=== PATIENT | male | born 1935 | race Caucasian/White ===

== ENCOUNTER 2017-08-02 18:09 | Emergency (ER) | payer OTHER, BC ==
[2017-08-02 18:16] VITALS: BP 146/85; BMI 23.6
[2017-08-02] MEDS ORDERED: NEOSPORIN OINT ONE (18:32)
--- NOTE | 2017-08-02 18:41 | DR.GENAD ---
HPI - PCP Primary Care Physician: [email or web address] - HPI Comment HPI Comment: HISTORY BELOW. - Complaint/Symptoms Chief Complaint Doctors Comments: PATIENTS COLOSTOMY CAME LOOSE AND HEALING WOUND NEAR IT WAS CONTAMINATED BY STOOL. Chief Complaint:: pt just returned from [place] [facility] [place] and his colostomy cam loose and he had bowel on a open wound. 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 Past Surgical History: Yes Surgical History: Abdominal Surgery Past Surgical History Comment: has colostomy - Family History History of Family Medical Conditions: No - Social History Does patient currently use any type of tobacco product: No Have you used tobacco products in the last 12 months: No Type of Tobacco Use: None Does any household member use tobacco: No Alcohol Use: None Do you use any recreational Drugs:: No Lives With: Family Lives Where: Home - infectious screening In the last 2 months have you had wt loss of >10#?: NO Have you had fever, night sweats or hemotysis?: No Have you traveled outside the country in the last 6 months?: No Isolation: Standard ROS - Review of Systems Constitutional: Weakness, Fatigue Eyes: No Symptoms Reported ENTM: No Symptoms Reported Respiratoy: Non-Productive Cough Cardiovascular: No Symptoms Reported Gastrointestinal/Abdominal: No Symptoms Reported Genitourinary: negative: Dysuria Neurological: Weakness Musculoskeletal: Muscle Pain Hematologic/Lymphatic: Easy Bruising Endocrine: No Symptoms Reported All Other Systems: Reviewed and Negative PE - Vital Signs Vitals: Temperature 98.6 F Pulse Rate 79 Respiratory Rate 16 Blood Pressure 146/85 O2 Sat by Pulse Oximetry 100 - General Limitations: No Limitations - Head Head Exam: Normal Inspection - Eyes Eye exam: Normal Appearance - ENT ENT Exam: Normal External Ear Exam - Neck Neck Exam: Trachea Midline - Chest Chest Inspection: Symmetric Chest Wall Rise - Respiratory Respiratory Exam: Normal Lung Sounds Bilat Respiratory Exam: Bilateral Rhonchi, Lower Rhonchi - Abdominal Exam Abdominal Exam: Normal Bowel Sounds, Soft, Tenderness (AROUND COLOSTOMY BAG AND HEALING WOUND NEAR IT. NO PUS ) - Back Back Exam: Paraspinal Tenderness - Neurologic Neurological Exam: Alert, Oriented X3 - Skin Skin Exam: Other (HEALING WOUND ABDOMINAL WALL.) MDM - Additional Information Additional Information Obtained From: Family - Differential Diagnosis Differential Diagnosis: COLOSTOMY BAD DISFUNTION., WOUND CONTAMINATION Course - Treatment Treatment: SEE ORDERS. COLOSTOMY BAG CHANGE BY LEONEL AND WOUND DRESSING AMADEOE IN ED. - Education/Counseling Education/Counseling: Patient, Family, Education Educated On: Diagnosis, Needs for Follow Up - Diagnosis Discharge Problem: Encounter for wound care, Colostomy dysfunction - Discharge Plan Disposition: HOME, SELF-CARE Condition: Stable - Follow ups/Referrals Follow ups/Referrals: [facility],None [Primary Care Provider] - 1 day - Instructions Instructions: Wound Care, Adult
== END 2017-08-02 19:10 | disposition home or self-care (01) ==
LOC: ER 18:09
DX: K94.03 Colostomy malfunction (principal); Z48.00 Encounter for change or removal of nonsurgical wound dressing
CPT/HCPCS: 99281; 99282